=== PATIENT | female | born 1940 | race Caucasian/White ===

== ENCOUNTER 2024-12-12 08:53 | Inpatient (IN) | payer OTHER ==
[~2024-12-12] VITALS: Ht 160 cm; Wt 72.6 kg
[2024-12-12] MEDS ORDERED: ENALAPRIL MALEA10 MG NGT (09:21)
[2024-12-12] MEDS ORDERED: PRAVASTATIN SOD40 MG PO (09:22)
[2024-12-12 10:33] LABS: URINE APPEARANCE Cloudy; URINE BILIRRUBIN Negative (NEGATIVE); URINE BLOOD Trace; URINE COLOR Yellow; URINE GLUCOSE Negative (NEGATIVE); URINE KETONE Negative (NEGATIVE); URINE LEUKOCYTE Large; URINE NITRATE Negative; URINE PROTEIN Negative (NEGATIVE); URINE UROBILINOGEN 1.0 E.U./dl
[2024-12-12 10:34] LABS: BASO % 0.9 % (0.1-1.2); EOS # 0.60 (0.04-0.54); EOS % 10.6 % (0.7-7.0); LYMPH # 1.43 (1.18-3.74); LYMPH % 25.4 % (19.3-53.1); MEAN PLATELET VOLUME 12.50 fl (9.4-12.4); MONO # 0.50 (0.24-0.82); MONO % 8.9 % (4.7-12.5); NEUT # 3.05 (1.56-6.13); NEUT % 54.0 % (34.0-71.1); RED CELL DISTRIBUTION WIDTH 15.0 % (11.6-14.4)
[2024-12-12 10:39] LABS: URINE BACTERIA 4061.9 uL (0.0-1933); URINE EPITHELIAL CELLS 157.3 uL (0.0-38.8); URINE RBC 3.5 uL (0.0-20.8); URINE WBC 427.9 uL (0.0-23.2)
[2024-12-12 10:57] LABS: TYPE CELLS SQUAMOUS; URINE CAST 0.58 uL (0.0-1.40)
[2024-12-12 11:09] LABS: INR 1.17
[2024-12-12 11:15] LABS: ALT/SGPT 23.0 U/L (12-78); AST/SGOT 24.0 U/L (15-37); BILIRUBIN TOTAL 0.77 mg/dL (0.3-1.2); BUN CREA RATIO 18.0 (7.0-25.0); CREATININE SERUM 0.72 mg/dL (0.55-1.02); GFR 77.55; GLOBULINA 3.6 G/DL (2.4-3.5); GLUCOSE FASTING 96.0 mg/dL (65-100); OSMOLALITY SERUM 281.0 MOSM/KG (275-295)
[2024-12-12] MEDS ORDERED: 0.9 % SODIUM CHLORIDE 1,000 ML IV SCH (20:00)
[2024-12-12] MEDS ORDERED: APIXABAN 5 MG TABLET PO SCH (20:03)
[2024-12-12] MEDS ORDERED: CEFTRIAXONE SODIUM 2,000 MG in 0.9 % SODIUM CHLORIDE 100 ML IV SCH (20:08)
[2024-12-12] MEDS ORDERED: FAMOTIDINE/PF 20 MG in 0.9 % SODIUM CHLORIDE 8 ML IV PUSH SCH (20:08)
[2024-12-12] MEDS ORDERED: NITROGLYCERIN 0.2 MG/HR PATCH.TD24 TD ONE (20:15)
[2024-12-12] MEDS ORDERED: ONDANSETRON HCL 4 MG in 0.9 % SODIUM CHLORIDE 50 ML IV PRN (20:15)
[2024-12-12] MEDS ORDERED: ACETAMINOPHEN 500 MG GEL..CAP PO PRN (20:15)
[2024-12-12 21:04] LABS: ABG PH 7.456 (7.35-7.45); ABG PO2 80.0 mmHg (80-100); BICARBONATE 22.9 mmol/l (23-25)
[2024-12-12 22:02] LABS: o2 21 %
[2024-12-12 23:13] VITALS: BP 110/74; O2SAT 98
[2024-12-13 04:00] VITALS: BP 115/78; O2SAT 96
[2024-12-13 07:04] LABS: URINE APPEARANCE Clear; URINE BILIRRUBIN Negative (NEGATIVE); URINE BLOOD Negative; URINE COLOR Yellow; URINE GLUCOSE Negative (NEGATIVE); URINE KETONE Negative (NEGATIVE); URINE LEUKOCYTE Moderate; URINE NITRATE Negative; URINE PROTEIN Negative (NEGATIVE); URINE UROBILINOGEN 1.0 E.U./dl
[2024-12-13 07:07] LABS: URINE BACTERIA 963.4 uL (0.0-1933); URINE EPITHELIAL CELLS 29.5 uL (0.0-38.8); URINE RBC 8.0 uL (0.0-20.8); URINE WBC 397.1 uL (0.0-23.2)
[2024-12-13 07:40] LABS: URINE CAST 0.14 uL (0.0-1.40)
[2024-12-13 09:00] VITALS: BP 127/64; O2SAT 97
[2024-12-13] MEDS ORDERED: ATORVASTATIN CALCIUM 40 MG TABLET PO SCH (09:00)
[2024-12-13] MEDS ORDERED: LACTOBACILLUS ACIDOPHILUS 1 CAP CAP PO SCH (17:00)
[2024-12-13 18:12] VITALS: BP 140/84; O2SAT 97
[2024-12-14 02:18] VITALS: BP 114/62; O2SAT 96
[2024-12-14 06:43] LABS: BASO % 0.9 % (0.1-1.2); EOS # 0.79 (0.04-0.54); EOS % 12.5 % (0.7-7.0); LYMPH # 1.62 (1.18-3.74); LYMPH % 25.6 % (19.3-53.1); MEAN PLATELET VOLUME 12.90 fl (9.4-12.4); MONO # 0.67 (0.24-0.82); MONO % 10.6 % (4.7-12.5); NEUT # 3.16 (1.56-6.13); NEUT % 50.1 % (34.0-71.1); RED CELL DISTRIBUTION WIDTH 14.8 % (11.6-14.4)
[2024-12-14 07:45] LABS: ALT/SGPT 18.0 U/L (12-78); AST/SGOT 15.0 U/L (15-37); BILIRUBIN TOTAL 0.46 mg/dL (0.3-1.2); BUN CREA RATIO 21.0 (7.0-25.0); CREATININE SERUM 0.89 mg/dL (0.55-1.02); FREE TRIODOTIRONINE 2.07 pg/ml (2.18-3.98); GFR 60.72; GLOBULINA 3.4 G/DL (2.4-3.5); GLUCOSE FASTING 107.0 mg/dL (65-100); OSMOLALITY SERUM 286.0 MOSM/KG (275-295); T3 UPTAKE 32.0 % (30-39); T4 FREE 1.05 NG/ML (0.76-1.46); T4 TOTAL 8.54 UG/DL (4.8-13.9)
[2024-12-14 09:48] VITALS: BP 121/79; O2SAT 96
[2024-12-14 18:17] VITALS: BP 126/70; O2SAT 97
[2024-12-15 01:05] VITALS: BP 119/80; O2SAT 97
[2024-12-15 08:00] VITALS: BP 110/69
[2024-12-15 18:24] VITALS: BP 122/71; O2SAT 97
[2024-12-16 01:03] VITALS: BP 110/73; O2SAT 97
[2024-12-16 08:23] VITALS: BP 107/68; O2SAT 95
[2024-12-16 09:08] LABS: CA 125 29.3 U/mL (0.0-38.1); CA 15-3 16.0 U/mL (0.0-25.0); CA 19-9 < 2 U/mL (0-35)
[2024-12-16] MEDS ORDERED: ELIQUIS5 MG PO (13:36)
[2024-12-16] MEDS ORDERED: LIPITOR40 M1 PO (13:36)
[2024-12-16] MEDS ORDERED: ENALAPRIL MALEA10 MG NGT (13:36)
[2024-12-16] MEDS ORDERED: PRAVASTATIN SOD40 MG PO (13:37)
[2024-12-16] MEDS ORDERED: INTESTINEX680 M1 PO (13:38)
[2024-12-16] MEDS ORDERED: FAMOTIDINE20 MG PO (13:38)
[2024-12-16] MEDS ORDERED: SYNTHROID75 MCG PO (13:39)
== END 2024-12-16 14:06 | disposition home or self-care (01) | DRG 300 ==
LOC: ER 08:53 → MEDJ 20:18 → SEC-K 20:18 → MEDJ 23:27
PROVIDERS: Emergency Medicine; General Practice; Internal Medicine Hematology & Oncology; ADMIT Internal Medicine; ATTEND Internal Medicine
PROC: BW24YZZ Computerized Tomography (CT Scan) of Chest and Abdomen using Other Contrast (ICD-10-PCS; principal; 2024-12-12)
PROC: B24BYZZ Ultrasonography of Heart with Aorta using Other Contrast (ICD-10-PCS; 2024-12-12)
PROC: B54NZZZ Ultrasonography of Left Upper Extremity Veins (ICD-10-PCS; 2024-12-12)
DX: I82.622 Acute embolism and thrombosis of deep veins of left upper extremity (principal); L03.114 Cellulitis of left upper limb; N39.0 Urinary tract infection, site not specified; I50.9 Heart failure, unspecified; C50.911 Malignant neoplasm of unspecified site of right female breast; C50.912 Malignant neoplasm of unspecified site of left female breast; I11.0 Hypertensive heart disease with heart failure; E03.9 Hypothyroidism, unspecified; I82.B12 Acute embolism and thrombosis of left subclavian vein